=== PATIENT | female | born 1980 | race Asian ===

== ENCOUNTER 2016-11-28 11:21 | Outpatient (CLI) ==
[2016-11-28 12:29] LABS: BASOPHILS % (AUTO) 0.6 % (0.0-3.0); EOSINOPHILS # (AUTO) 0.1 K/ul (0.0-0.7); HEMOGLOBIN 12.2 g/dl (12.0-16.0); IMMATURE GRANULOCYTE % (AUTO) 0.4 % (0.0-5.0); LYMPHOCYTES # (AUTO) 1.9 K/uL (0.60-3.4); LYMPHOCYTES % (AUTO) 40.7 (10.0-50.0); MEAN CORPUSCULAR HGB CONC 34.9 (31.8-35.4); MONOCYTES # (AUTO) 0.3 K/uL (0.4-2.0); MONOCYTES % (AUTO) 5.8 (0-10); NEUTROPHILS # (AUTO) 2.3 K/ul (2.0-6.9); NEUTROPHILS % (AUTO) 49.5; PLATELET COUNT 281 10^3/uL (140-440); RED BLOOD COUNT 4.07 10^6/ul (4.20-5.40); WHITE BLOOD COUNT 4.69 K/ul (4.6-10.2)
[2016-11-28 12:31] LABS: BILIRUBIN,URINE Negative (NEGATIVE); KETONES,URINE Negative (NEGATIVE); LEUKOCYTE ESTERASE ,URINE 1+ (NEGATIVE); NITRITE,URINE Negative (NEGATIVE); PROTEIN,URINE Negative (NEGATIVE); URINE, BLOOD 3+ (NEGATIVE)
[2016-11-28 13:14] LABS: ADD URINE MICROSCOPIC YES
[2016-11-28 13:16] LABS: ALBUMIN/GLOBULIN RATIO 1.14; ANION GAP 18.2; BILIRUBIN,TOTAL 0.72 mg/dL (0.00-1.20); BUN/CREATININE RATIO 14.92; CALCIUM 8.6 mg/dL (8.2-10.2); CHOL/HDL RATIO 4.5 (4.5-5.5); CREATININE 0.67 mg/dL (0.60-1.30); POTASSIUM 3.2 mmol/L (3.5-5.10); TOTAL PROTEIN 7.5 g/dL (6.4-8.2)
== END 2016-11-28 11:22 | disposition home or self-care (01) ==
LOC: LAB 11:21
PROVIDERS: ATTEND Nurse Practitioner Family
DX: Z00.00 Encounter for general adult medical examination without abnormal findings (principal)
CPT/HCPCS: 36415; 80053; 80061; 81001; 84443; 85025; 87086

== ENCOUNTER 2016-12-03 11:49 | Outpatient (CLI) ==
[2016-12-03 13:32] LABS: ADD URINE MICROSCOPIC YES; BILIRUBIN,URINE Negative (NEGATIVE); KETONES,URINE Negative (NEGATIVE); LEUKOCYTE ESTERASE ,URINE Negative (NEGATIVE); NITRITE,URINE Negative (NEGATIVE); PROTEIN,URINE Negative (NEGATIVE); URINE, BLOOD 3+ (NEGATIVE)
== END 2016-12-03 11:50 | disposition home or self-care (01) ==
LOC: LAB 11:49
PROVIDERS: ATTEND Nurse Practitioner Family
DX: R31.9 Hematuria, unspecified (principal); E87.6 Hypokalemia
CPT/HCPCS: 81001

== ENCOUNTER 2016-12-04 07:21 | Outpatient (CLI) ==
--- NOTE | 2016-12-04 08:43 | US ---
EXAM: RENAL ULTRASOUND, BILATERAL HISTORY: Hematuria FINDINGS: Ultrasound renal, bilateral. Theodore-scale ultrasound and color Doppler imaging was perform ed. The right kidney measures 12.0 x 5.8 x 4.2 centimeters. The left kidney measures 10.6 x 5.3 x 3.8 centimeters. The right kidney has two tiny approximately 1 cm cortical cystic masses thought to represent simple cysts. General cortical volume and echogenicity were otherwise grossly unremarkable. No hydronephr osis was seen. Urinary bladder was grossly unremarkable. Normal bilateral ureteral jets. IMPRESSION: The right kidney has two tiny approximately 1 cm cortical cystic masses thought to repr esent cysts without gross complexity. No definite etiology for hematuria found. Further workup may be necessary given patient age and history. Further imaging could include renal protocol CT or MRI.
== END 2016-12-04 07:22 | disposition home or self-care (01) ==
LOC: RAD 07:21
PROVIDERS: ATTEND Nurse Practitioner Family
DX: R31.9 Hematuria, unspecified (principal)
CPT/HCPCS: 76770

== ENCOUNTER 2016-12-05 07:47 | Outpatient (CLI) ==
--- NOTE | 2016-12-05 08:56 | CT ---
EXAM: CT of the abdomen pelvis with and without contrast History: Follow-up right renal masses. Comparison: Renal ultrasound 12/06/2016 Technique: Multiplanar CT images through the abdomen pelvis were obtained with and without the admi nistration of IV contrast. Findings: Lung bases are free of consolidation. No acute osseous abnormalities. No discrete gallstones identified by CT. No peripancreatic inflammation. Adrenal glands are unrema rkable. No focal liver or splenic lesions. No bowel obstruction. Scattered colonic stool. The ap pendix is normal. Mild to moderate bladder distension but no bladder wall thickening. No perirecta l inflammation. Somewhat lobulated contour uterus with several intrauterine masses with the largest measuring 3.2 cm. No free air and no ascites. No renal stones and no hydronephrosis. Left kidney is unremarkable. There are two small simple right renal cortical cysts measuring 1.7 cm and 1.2 cm . No suspicious renal masses. Impression: 1. Small simple right renal cortical cysts. 2. Fibroid uterus.
== END 2016-12-05 07:48 | disposition home or self-care (01) ==
LOC: RAD 07:47
PROVIDERS: ATTEND Nurse Practitioner Family
DX: N28.89 Other specified disorders of kidney and ureter (principal); R93.429 Abnormal radiologic findings on diagnostic imaging of unspecified kidney

== ENCOUNTER 2016-12-08 12:03 | Outpatient (CLI) ==
[2016-12-08 13:39] LABS: ANION GAP 15.3; BUN/CREATININE RATIO 13.33; CALCIUM 9.9 mg/dL (8.2-10.2); CREATININE 0.75 mg/dL (0.60-1.30); POTASSIUM 3.3 mmol/L (3.5-5.10)
== END 2016-12-08 12:04 | disposition home or self-care (01) ==
LOC: LAB 12:03
PROVIDERS: ATTEND Nurse Practitioner Family
DX: E87.6 Hypokalemia (principal); R31.9 Hematuria, unspecified
CPT/HCPCS: 36415; 80048

== ENCOUNTER 2018-09-15 09:41 | Outpatient (CLI) | END 2018-09-15 09:42 | disposition home or self-care (01) | LOC: RHC-LAB 09:41 | PROVIDERS: ATTEND Nurse Practitioner Family | DX: Z00.00 Encounter for general adult medical examination without abnormal findings (principal) | CPT/HCPCS: 36415; 80053; 80061; 84443; 85025 ==